=== PATIENT | female | born 1975 | race Caucasian/White ===

== ENCOUNTER → 2016-12-14 | Day surgery (SDC) | payer OTHER ==
[2016-12-14 10:11] LABS: CREATININE 0.7 mg/dL (0.5-1.0); POTASSIUM 3.6 mmol/L (3.5-5.1)
== END | disposition home or self-care (01) ==
LOC: FAS 09:29
PROVIDERS: Anesthesiology
DX: K64.0 First degree hemorrhoids (principal); K21.9 Gastro-esophageal reflux disease without esophagitis; Z88.5 Allergy status to narcotic agent; Z79.899 Other long term (current) drug therapy; Z90.49 Acquired absence of other specified parts of digestive tract; Z98.890 Other specified postprocedural states; M19.90 Unspecified osteoarthritis, unspecified site; I10 Essential (primary) hypertension; F17.210 Nicotine dependence, cigarettes, uncomplicated; F41.9 Anxiety disorder, unspecified; E78.1 Pure hyperglyceridemia; G43.909 Migraine, unspecified, not intractable, without status migrainosus; E04.1 Nontoxic single thyroid nodule; Z87.440 Personal history of urinary (tract) infections; Z98.51 Tubal ligation status
CPT/HCPCS: 36415; 80048; 84703; J1100; J2704

== ENCOUNTER 2021-04-04 00:44 | Emergency (ER) | payer OTHER ==
[~2021-04-04 00:44] MED LIST: AMOX TR-K CLV1 EAC4 PO; ATARAX25 MG PO; BUSPIRONE HCL30 MG PO; CARAFATE1 GM PO; CLARITIN10 MG PO; ELIQUIS5 MG PO; FENOFIBRATE160 MG PO; HYDROCODON-ACE1 EAC6 PO; IBUPROFEN800 MG PO; IMITREX100 MG PO; KLONOPIN0.5 MG PO; NASONEX NAS120 PUFFS; NICOTINE PATCH1 EAC2 TD; NORCO 5-325 TA1 EACH PO; PERCOCET 7.5/321 TAB PO; PROMETHAZINE 2525 MG PO; PROTONIX 40MG T40 MG PO; TOPROL XL100 MG PO; VALACYCLOVIR500 MG PO; VICODIN 10/3251 EACH PO
[2021-04-04 03:03] LABS: ALBUMIN 3.6 g/dL (3.4-5.0); BILIRUBIN - TOTAL 0.4 mg/dL (0.2-1.0); BUN/CREAT RATIO (CALC) 14.3 RATIO; CREATININE 0.7 mg/dL (0.51-0.95); GLOBULIN (CALCULATION) 3.1 g/dL; POTASSIUM 3.6 mmol/L (3.5-5.1); TOTAL PROTEIN 6.7 g/dL (6.4-8.2)
[2021-04-04 03:07] LABS: BASOPHIL 0.5 % (0-2); EOSINOPHIL 3.4 % (0-5); HCT 43.3 % (37.0-47.0); HGB 14.7 g/dl (12.5-16.0); LYMPHOCYTE 32.8 % (15-48); MCHC 33.9 g/dL (32.0-36.0); MCV 91.4 fL (78.0-100.0); MONOCYTE 6.9 % (0-12); NEUTROPHIL 55.2 % (41-80); NRBC 0; PLT 191 K/uL (150-400); RBC 4.74 M/uL (4.20-5.40); RDW 12.5 % (11.5-14.0); WBC 7.4 K/uL (4.0-10.5)
== END 2021-04-04 05:50 | disposition home or self-care (01) ==
LOC: FER 00:44
PROVIDERS: Emergency Medicine
DX: R07.89 Other chest pain (principal); I10 Essential (primary) hypertension; Z88.6 Allergy status to analgesic agent; Z88.8 Allergy status to other drugs, medicaments and biological substances; Z79.899 Other long term (current) drug therapy
CPT/HCPCS: 36415; 71045; 80053; 84484; 85025; 85379; 93005; J1630; J3490

== ENCOUNTER 2021-08-31 05:42 | Emergency (ER) | payer OTHER | END 2021-08-31 06:27 | disposition home or self-care (01) | LOC: FER 05:42 | DX: L03.211 Cellulitis of face (principal); F17.200 Nicotine dependence, unspecified, uncomplicated; Z88.5 Allergy status to narcotic agent; Z88.8 Allergy status to other drugs, medicaments and biological substances | CPT/HCPCS: 99282 ==

== ENCOUNTER 2022-05-24 17:01 | Emergency (ER) | payer OTHER ==
[2022-05-24 18:53] LABS: BASOPHIL 0.6 % (0-2); EOSINOPHIL 3.2 % (0-5); HGB 14.4 g/dl (12.5-16.0); LYMPHOCYTE 24.4 % (15-48); MCH 30.1 pg (25.0-31.0); MCHC 34.3 g/dL (32.0-36.0); MCV 87.9 fL (78.0-100.0); MONOCYTE 7.2 % (0-12); MPV 10.3 fL (6.0-9.5); NRBC 0; PLT 189 K/uL (150-400); RBC 4.78 M/uL (4.20-5.40)
[2022-05-24 19:12] LABS: BUN/CREAT RATIO (CALC) 12.3 RATIO; CREATININE 0.65 mg/dL (0.51-0.95); POTASSIUM 3.7 mmol/L (3.5-5.1)
[2022-05-24] MEDS ORDERED: ONDANSETRON HCL4 MG PO (23:05)
[2022-05-24] MEDS ORDERED: NAPROSYN500 MG PO (23:05)
== END 2022-05-24 23:39 | disposition home or self-care (01) ==
LOC: FER 17:01
PROVIDERS: Nurse Practitioner Family
DX: R07.89 Other chest pain (principal); I82.611 Acute embolism and thrombosis of superficial veins of right upper extremity; I10 Essential (primary) hypertension; F17.210 Nicotine dependence, cigarettes, uncomplicated; Z88.6 Allergy status to analgesic agent; Z88.8 Allergy status to other drugs, medicaments and biological substances
CPT/HCPCS: 36415; 71275; 80048; 84484; 85025; 85379; 93005; 93971; J1885; J2405; J7030; Q9967